=== PATIENT | male | born 1985 | race Caucasian/White ===

== ENCOUNTER 2020-10-25 22:20 | Emergency (ER) | payer OTHER ==
[~2020-10-25] VITALS: Ht 177.8 cm; Wt 100.0 kg
[2020-10-25 22:22] VITALS: BP 152/91
[2020-10-25] MEDS ORDERED: ACETAMINOPHEN WITH CODEINE 300/30MG TABLET PO ONE (23:00)
== END 2020-10-25 23:17 | disposition left against medical advice (07) ==
LOC: ER 22:20
DX: R10.31 Right lower quadrant pain (principal); M25.512 Pain in left shoulder; E11.9 Type 2 diabetes mellitus without complications; V43.52XA Car driver injured in collision with other type car in traffic accident, initial encounter; Y92.488 Other paved roadways as the place of occurrence of the external cause
CPT/HCPCS: 99283